=== PATIENT | male | born 1935 | race Caucasian/White ===

== ENCOUNTER 2018-12-11 14:52 | Emergency (ER) | payer MEDICARE, BC ==
[~2018-12-11] VITALS: Ht 182.9 cm; Wt 87.1 kg
[~2018-12-11 14:52] MED LIST: ATOR40TA PO; CLOP75TA15 PO; FURO20TA4 PO; LORA1TAB PO; METO-358 PO; RANI-655 PO; TAMS0.4C34 PO
--- NOTE | 2018-12-11 14:55 | NUR ---
in room 2b, seen by MD Dr Meraz. patient while cleaning a barbecue fell backwards and hit a doorknob, suffering a laceration posterior side of the head and laceration of the left hand as well.
[2018-12-11] MEDS ORDERED: SODIUM BICARBONATE 4.2 % (NEUT) 5 ML VIAL TP ONE (15:00)
[2018-12-11] MEDS ORDERED: LIDOCAINE HCL 2% 20 ML VIAL TP ONE (15:00)
[2018-12-11] MEDS ORDERED: LET TOPICAL SOLUTION 8 ML UDC TP ONE (15:00)
--- NOTE | 2018-12-11 15:08 | NUR ---
to Radiology dpt for Head CT/cervical spine CT
[2018-12-11] MEDS ORDERED: TOPROL XL (15:13)
[2018-12-11] MEDS ORDERED: LET TOPICAL SOLUTION 8 ML UDC ONE (15:26)
--- NOTE | 2018-12-11 15:26 | NUR ---
back to room from Radiology dept
[2018-12-11] MEDS ORDERED: LEVETIRACETAM IV 500 MG in IV DEXTROSE 5% 100 ML IV ONE (16:15)
[2018-12-11 16:22] LABS: BASOPHILS # (AUTO) 0.1 K/uL (0.0-8.0); BASOPHILS % (AUTO) 0.9 % (0.0-2.0); EOSINOPHILS # (AUTO) 0.3 K/uL (0.0-0.7); EOSINOPHILS % (AUTO) 3.1 % (0.0-7.0); HEMATOCRIT 37.8 % (36.7-47.1); HEMOGLOBIN 12.7 g/dL (12.5-16.3); LYMPHOCYTES # (AUTO) 0.5 K/uL (20.0-40.0); LYMPHOCYTES % (AUTO) 6.4 % (20.5-51.5); MEAN CORPUSCULAR HEMOGLOBIN 31.3 uug (23.8-33.4); MEAN CORPUSCULAR HGB CONC 34 g/dL (32.5-36.3); MEAN CORPUSCULAR VOLUME 93.5 fL (73.0-96.2); MONOCYTES # (AUTO) 0.6 K/uL (2.0-10.0); MONOCYTES % (AUTO) 7.4 % (0.0-11.0); NEUTROPHILS # (AUTO) 6.7 K/uL (1.8-8.9); NEUTROPHILS % (AUTO) 82.2 % (38.5-71.5); PLATELET COUNT (AUTO) 155 K/uL (152-348); RED BLOOD CELL COUNT(AUTO) 4.05 MIL/uL (4.06-5.63); WHITE BLOOD COUNT (AUTO) 8.2 K/uL (3.6-10.2)
--- NOTE | 2018-12-11 16:30 | NUR ---
connected to heart monitor. ekg atrial fib hr 100-130/min
[2018-12-11 16:34] LABS: CARBON DIOXIDE 26 mmol/L (21-32); CHLORIDE 107 mmol/L (98-107); CREATININE 1.5 mg/dL (0.6-1.3); GLUCOSE 100 mg/dL (74-106); POTASSIUM 3.7 mmol/L (3.5-5.1); UREA NITROGEN, BLOOD 24 mg/dL (7-18)
--- NOTE | 2018-12-11 16:35 | NUR ---
keppra 500mg infused IV via right forearm IV #20
[2018-12-11 16:40] LABS: ALANINE AMINOTRANSFERASE 16 U/L (16-63); ALKALINE PHOSPHATASE 107 U/L (50-136); ASPARTATE AMINOTRANSFERASE 22 U/L (15-37); BILIRUBIN,DIRECT 0.2 mg/dL (0.0-0.2); BILIRUBIN,TOTAL 0.7 mg/dL (0.2-1.0)
[2018-12-11 16:55] VITALS: BP 132/99
[2018-12-11] MEDS ORDERED: DILTIAZEM HCL 25 MG IV ONE (16:58)
--- NOTE | 2018-12-11 16:58 | NUR ---
cardizem 5mg given IV via right IV site #18
[2018-12-11] MEDS ORDERED: DILTIAZEM HCL 25 MG IV IV ONE (17:00)
[2018-12-11] MEDS ORDERED: NEOMY/BACITRA/POLYMYXIN B OINT UD PACKET TP ONE ×2 (17:02→17:15)
--- NOTE | 2018-12-11 17:25 | NUR ---
wound care done left hand
--- NOTE | 2018-12-11 17:34 | NUR ---
Spoke to SUMMER from [facility]. Faxed FACESHEET and CLINICAL data as requested. She stated that after receiving these items that they could begin the process to assign a room.
--- NOTE | 2018-12-11 18:20 | NUR ---
[facility] ambulance called for transport. information given to Luis. garbage pick up man time is 830pm
--- NOTE | 2018-12-11 19:11 | NUR ---
report given to Brent LIRA
--- NOTE | 2018-12-11 19:22 | NUR ---
Patient, and spouse, noted bleeding to the stapled wound. Pressure dressing applied which was quickly soaked in blood. Physical pressure applied until bleeding stopped, pressure dressing applied as ordered by ERMD. Will continue to monitor for signs of bleeding.
--- NOTE | 2018-12-11 19:54 | NUR ---
Report given to Jarrod LIRA, at [facility].
--- NOTE | 2018-12-11 20:31 | NUR ---
called [facility], spoke to Bryce valdovinos. He stated that they will be here within 10 - 15 minutes,
--- NOTE | 2018-12-11 21:32 | NUR ---
patient picked up by [facility] to be transferred to [facility]. Patient alert and oriented x4. patient in stable condition and vital signs are stable. patient at bedside and will be going with patient to transferred facility. Patient SBAR report given prior to transfer. Patient shows no signs of congnitive defects. Patient okay to transfer and signed transfer form. All belongings taken with the patient. All information given to EMT with [facility] records and treatments done at the facility.
--- NOTE | 2018-12-11 21:35 | NUR ---
[facility] here to take patient to transferring facility
== END 2018-12-11 21:32 | disposition short-term general hospital (02) ==
LOC: ER 14:52
DX: S01.01XA Laceration without foreign body of scalp, initial encounter (principal); S06.6X0A Traumatic subarachnoid hemorrhage without loss of consciousness, initial encounter; S06.5X0A Traumatic subdural hemorrhage without loss of consciousness, initial encounter; I48.0 Paroxysmal atrial fibrillation; E78.5 Hyperlipidemia, unspecified; K21.9 Gastro-esophageal reflux disease without esophagitis; Z79.01 Long term (current) use of anticoagulants; Z79.899 Other long term (current) drug therapy; W10.9XXA Fall (on) (from) unspecified stairs and steps, initial encounter; Y93.89 Activity, other specified; Y92.89 Other specified places as the place of occurrence of the external cause; Y99.8 Other external cause status
CPT/HCPCS: 12002; 36415; 70450; 71045; 72125; 80048; 80076; 84484; 85025; 85730; 93005; 96365; 96375; 99291; J1953; J3490 ×2; J7060; 70030-TC; A4217; A4663

== ENCOUNTER 2023-01-27 11:36 | Emergency (ER) | payer MEDICARE, BC ==
[~2023-01-27] VITALS: Ht 182.9 cm; Wt 78.5 kg
[2023-01-27] MEDS ORDERED: ALLO100T PO (12:06)
[2023-01-27] MEDS ORDERED: FERR236T3 PO (12:06)
[2023-01-27 12:49] LABS: BASOPHILS % (AUTO) 0.4 % (0.0-2.0); EOSINOPHILS # (AUTO) 0.1 K/uL (0.0-0.7); HEMATOCRIT 23.7 % (36.7-47.1); LYMPHOCYTES # (AUTO) 0.2 K/uL (0.8-4.8); LYMPHOCYTES % (AUTO) 9.2 % (20.5-51.5); MEAN CORPUSCULAR HEMOGLOBIN 30.9 uug (23.8-33.4); MEAN CORPUSCULAR HGB CONC 31 g/dL (32.5-36.3); MEAN CORPUSCULAR VOLUME 99.5 fL (73.0-96.2); MONOCYTES # (AUTO) 0.2 K/uL (0.1-1.30); MONOCYTES % (AUTO) 8.8 % (0.0-11.0); NEUTROPHILS # (AUTO) 2.1 K/uL (1.8-8.9); NEUTROPHILS % (AUTO) 79.6 % (38.5-71.5); PLATELET COUNT (AUTO) 131 K/uL (152-348); RED CELL DISTRIBUTION WIDTH 19.1 % (12.1-16.2); WHITE BLOOD COUNT (AUTO) 2.6 K/uL (3.6-10.2)
[2023-01-27 13:04] LABS: DIFFERENTIAL COMMENT 1; HEMOGLOBIN 7.4 g/dL (12.5-16.3); RED BLOOD CELL COUNT(AUTO) 2.39 MIL/uL (4.06-5.63)
[2023-01-27 13:20] LABS: ALANINE AMINOTRANSFERASE 15 U/L (16-63); ALBUMIN 3.2 g/dL (3.4-5.0); ALKALINE PHOSPHATASE 136 U/L (50-136); ASPARTATE AMINOTRANSFERASE 14 U/L (15-37); BILIRUBIN,DIRECT 0.5 mg/dL (0.0-0.2); BILIRUBIN,TOTAL 1.6 mg/dL (0.2-1.0); CALCIUM 8.7 mg/dL (8.5-10.1); CARBON DIOXIDE 24 mmol/L (21-32); CHLORIDE 106 mmol/L (98-107); CREATININE 1.7 mg/dL (0.6-1.3); GLUCOSE 103 mg/dL (74-106); SODIUM SERUM 138 mmol/L (136-145); TOTAL PROTEIN, SERUM 5.8 g/dL (6.4-8.2); UREA NITROGEN, BLOOD 40 mg/dL (7-18)
[2023-01-27 13:42] LABS: IRON, SERUM 104 ug/dL (50-175)
[2023-01-27 14:44] VITALS: BP 132/73; TEMP 98.6; O2SAT 93
== END 2023-01-27 14:44 | disposition home or self-care (01) ==
LOC: ER 11:36
DX: S09.90XA Unspecified injury of head, initial encounter (principal); T14.8XXA Other injury of unspecified body region, initial encounter; D61.818 Other pancytopenia; E78.5 Hyperlipidemia, unspecified; K21.9 Gastro-esophageal reflux disease without esophagitis; Z79.899 Other long term (current) drug therapy; Z79.01 Long term (current) use of anticoagulants; W10.9XXA Fall (on) (from) unspecified stairs and steps, initial encounter; Y93.89 Activity, other specified; Y92.89 Other specified places as the place of occurrence of the external cause; Y99.8 Other external cause status
CPT/HCPCS: 36415; 70030-TC; 70450; 72125; 72192; 83550; 84484; 85025; 85730; 86850; 86900; 86901; A4606; A4663